=== PATIENT | female | born 1990 | race Caucasian/White ===

== ENCOUNTER → 2022-11-22 15:55 | Outpatient (CLI) | payer OTHER, SELFPAY ==
--- NOTE | ~2022-11-22 | US_ITS ---
Thyroid ultrasound. Clinical History: Thyroid nodule Findings: Real-time sonography of the thyroid gland was performed. The right lobe measures 5.5 x 1.4 x 1.7 cm. The left lobe measures 4.4 x 1.1 x 1.2 cm. The isthmus is 4 mm in AP diameter. There is a 1.9 x 1.1 x 1.5 cm solid hypoechoic wider than tall mass at the right midpole. There is a 0.9 cm hypoechoic solid mass posteriorly at the right mid to lower pole. There is a 1.4 x 1.2 x 1.8 c m predominantly solid isoechoic to hypoechoic mass the right lower pole of focal cystic component. Th ere is a 0.9 cm hypoechoic mass in the isthmus. Impression: Thyroid nodules, as detailed above. The 2 largest right thyroid lobe nodules meet criteria for FNA.. Reviewed, dictated and finalized at [facility]. Impression: Thyroid nodules, as detailed above. The 2 largest right thyroid lobe nodules me et criteria for FNA..
== END ==
PROVIDERS: PCP Internal Medicine; Visit Provider Internal Medicine
DX: E04.2 Nontoxic multinodular goiter (principal)
CPT/HCPCS: 76536